=== PATIENT | female | born 1965 | race Caucasian/White ===

== ENCOUNTER 2017-11-07 18:57 | Emergency (ER) | payer OTHER ==
[~2017-11-07] VITALS: Ht 162.6 cm; Wt 61.2 kg
[~2017-11-07 18:57] MED LIST: Ecotrin PO; TOPAMAX100 MG PO
[2017-11-07 21:35] VITALS: BP 152/92
== END 2017-11-07 21:36 | disposition home or self-care (01) ==
LOC: EME 18:57 → EXP 18:57
DX: M79.661 Pain in right lower leg (principal); E78.5 Hyperlipidemia, unspecified; Z79.82 Long term (current) use of aspirin; Z82.49 Family history of ischemic heart disease and other diseases of the circulatory system
CPT/HCPCS: 93971; 99281; 99284